=== PATIENT | male | born 1940 | race Caucasian/White ===

== ENCOUNTER 2017-01-08 22:24 | Inpatient (IN) | payer OTHER ==
[2017-01-08] MEDS ORDERED: ASPIRIN PO STA (22:47)
--- NOTE | 2017-01-08 22:47 | EKG Report ---
Test Performed on : 01/08/2017 10:39:10 PM Test Reason : Suspected Overdose Blood Pressure : / mmHG Vent. Rate : 102 BPM Atrial Rate : 102 BPM P-R Int : 188 ms QRS Dur : 164 ms QT Int : 378 ms P-R-T Axes : -23 -27 151 degrees QTc Int : 492 ms Sinus tachycardia. with premature atrial complexes. with aberrant conduction. Left bundle branch block Abnormal ECG When compared with ECG of 17-NOV-2016 10:17, aberrant conduction. is now present Unconfirmed Result
[2017-01-08 23:13] LABS: BASO% 0.1 % (0.0-0.8); HEMATOCRIT 30.5 % (42.0-52.0); HEMOGLOBIN 9.9 g/dL (14.0-18.0); IMM GRAN# 0.05 X1000 (0.0-0.04); IMM GRAN% 0.3 % (0.0-0.5); LYMPH# 1.07 X1000 (1.2-3.4); LYMPH% 5.9 % (20.5-51.1); MANUAL DIFF NEEDED? NO; MCH 28.1 PG (27-31); MCHC 32.5 g/dL (33-37); MCV 86.6 FL (81-99); MONO# 1.17 X1000 (0.11-0.59); MONO% 6.4 % (1.7-9.3); MPV 9.6 FL (7.4-10.4); NEUT% 87.3 % (42.2-75.2); PLT 460 X1000 (130-400); RBC 3.52 XMIL (4.7-6.1)
[2017-01-08 23:32] LABS: INR 1.07 (0.86-1.15); PROTIME 14.2 Seconds (12.1-15.5); PTT PL 34.8 Seconds (22.6-43.9)
[2017-01-08 23:35] LABS: AGAP 10; ALBUMIN 3.2 g/dL (3.5-5.0); ALKALINE PHOSPHATASE 120 U/L (32-122); BUN 18 mg/dL (8-22); CALCIUM 9.2 mg/dL (8.8-10.2); CHLORIDE 90 mmol/L (98-107); CK PROFILE 34 U/L (24-204); COSMO 251; GOT 31 U/L (10-34); GPT 38 U/L (10-44); MAGNESIUM 1.8 mg/dL (1.5-2.7); POTASSIUM 5.1 mmol/L (3.5-5.1); SODIUM 123 mmol/L (136-145); TCO2 22 mmol/L (25-35); TOTAL PROTEIN 6.6 g/dL (6.3-8.3)
--- NOTE | 2017-01-08 23:44 | PROVIDER DOCUMENTATION ---
HPI-General Adult - General Source: patient - History of Present Illness -Gen Adult Nature of Presenting Problems: 76 YOM PRESENTS TO ED WITH C/O PT HAS A 3 OR 4 DAY HX OF COUGH. PT STATES CHEST PAIN WITH A LOT OF BELCHING. PT STATES NECK PAIN DUE TO AMBULANCE RIDE TO ED. PT STATES HE HAS BEEN TAKING A STEROID PACK, AND IS ALMOST DONE WITH IT. PT STATES HE TAKES A NORCO 5MG IN MORNING AND 1 AT NIGHT. Location of Pain/Injury: reports: neck, chest Pain Radiation: reports: no radiation Quality of Pain: reports: aching Severity: reports: moderate Onset/Duration: reports: 3 days ago Timing: reports: still present Context/Activities at Onset: reports: light activity Modifying Factors: improves with: nothing Associated Symptoms: reports: chest pain Similar Symptoms Previously?: No Recently seen or treated by another doctor?: No - Sickle Cell Pain Related Context Is this pain typical of prior episodes of crisis?: No <Itz Rehman - Last Filed: 01/09/17 00:14> <Ravinder Garay - Last Filed: 01/09/17 00:50> - General Chief Complaint: Cough Stated Complaint: CHEST PAIN Time Seen by Provider: 01/08/17 23:05 Allergies/Adverse Reactions: Patient Allergies Allergy/AdvReac Type Severity Reaction Status Date / Time morphine Allergy Severe ANAPHYLAXIS Verified 10/16/16 15:33 Sulfa (Sulfonamide Allergy Intermediate HIVES Verified 10/16/16 15:33 Antibiotics) Home Medications: Home Medication List Medication Instructions Recorded Confirmed Last Taken Type Aspirin 81 mg PO QHS 06/07/13 10/16/16 10/16/16 History Metoprolol [Lopressor] 50 mg PO DAILY 06/07/13 10/16/16 10/16/16 History PRAVAstatin [Pravachol] 40 mg PO QHS 06/07/13 10/16/16 10/16/16 History Colchicine 0.6 mg PO ORDERED 09/06/16 10/16/16 10/16/16 History Esomeprazole [Nexium] 40 mg PO DAILY 09/06/16 10/16/16 10/16/16 History Ramipril 10 mg PO DAILY 09/06/16 10/16/16 10/16/16 History Ciprofloxacin 500 mg PO BID #24 ml 10/18/16 Unknown Rx Metronidazole [Flagyl] 500 mg PO BID #28 tablet 10/18/16 Unknown Rx Review of Systems - Adult - REVIEW OF SYSTEMS - ADULT Constitutional: denies: chills, fever Eyes: reports: no symptoms reported Ears, Nose, Mouth & Throat: reports: no symptoms reported Cardiovascular: reports: chest pain. denies: palpitations, syncope Respiratory: reports: cough, shortness of breath. denies: wheezing Gastrointestinal: denies: abdominal pain, diarrhea, nausea, vomiting Genitourinary: reports: no symptoms reported Musculoskeletal: denies: back pain, neck pain Integumentary: reports: no symptoms reported Neurological: denies: dizziness/vertigo, headache/migraines, syncope Psychiatric: reports: no symptoms reported Endocrine: reports: no symptoms reported Hematologic/Lymphatic: reports: no symptoms reported Allergic/Immunologic: reports: no symptoms reported All Other Systems: Reviewed and Negative <Itz Rehman - Last Filed: 01/09/17 00:14> Past History - Adult - PAST MEDICAL HISTORY-ADULT Review of Records: reports: Nursing Assessment Review, Medications Reviewed Cardiovascular: reports: HTN, hyperlipidemia, IA Respiratory: reports: COPD - PRIOR SURGERIES/PROCEDURES Surgical/Procedure History: reports: hernia repair, back/neck (back ) - IMMUNIZATION STATUS Childhood Immunizations: See Nurse Assessment Flu Vaccine: See Nurse Assessment - FAMILY HISTORY Family History: reviewed, not pertinent - SOCIAL HISTORY Smoking: cigarettes, greater than 1 pack/day Provider spent 3-5 mins advising pt. on dangers of tobacco.: Discussed manners to quit use, and f/u contacts for add'l counseling. Substance Use: denies Alcohol Use Frequency: never Living Situation: family <Itz Rehman - Last Filed: 01/09/17 00:14> Physical Exam-General - CONSTITUTIONAL General Appearance: alert, moderate distress - EYES Eyes: PERRL/EOMI, pink conjunctivae - HEAD, EARS, NOSE, MOUTH & THROAT HENMT: normocephalic/atraumatic, moist mucous membranes - NECK Neck: full range of motion, supple, tender lateral - RESPIRATORY Respiratory: chest non-tender, rales (RT SIDE) - CARDIOVASCULAR Cardiovascular: normal peripheral pulses, tachycardia, systolic murmur (2/6 EJECTION) - GASTROINTESTINAL (ABDOMEN) Abdominal Exam: normal bowel sounds, non tender, soft - LYMPHATIC Lymphatic: no adenopathy - MUSCULOSKELETAL Back Exam: normal inspection, no CVA tenderness, no vertebral tenderness Extremity: normal range of motion, non-tender - SKIN Integumentary: normal color, normal turgor, warm/dry - NEUROLOGIC Neurologic: grossly normal - PSYCHIATRIC Psych/Mental Status: oriented x 3 <Itz Rehman - Last Filed: 01/09/17 00:14> Progress - XRAY 1 XRAY: Bilateral XRAY Study: Chest XRAY Interpretation: RT LL INFILTRATE. CARDIOMEGALY. <Itz Rehman - Last Filed: 01/09/17 00:14> Departure <Itz Rehman - Last Filed: 01/09/17 00:14> - Departure Time of Disposition Order: 00:15 Certified Medical Emergency: Emergent <Ravinder Garay - Last Filed: 01/09/17 00:50> - Departure DIAGNOSIS: Pneumonia Qualifiers: Pneumonia type: due to unspecified organism Laterality: right Lung location: lower lobe of lung Qualified Code(s): J18.1 - Lobar pneumonia, unspecified organism CHF (congestive heart failure), NYHA class I Qualifiers: Congestive heart failure type: unspecified congestive heart failure type Qualified Code(s): I50.9 - Heart failure, unspecified Disposition: ADMITTED INPATIENT 09 Condition: Fair Attestation - Scribe Verification/Attestation Scribe:: Itz Rehman Acting as Scribe for:: Ravinder Garay Scribe documention review:: This chart was documented by a scribe and accurately reflects the service the provider performed and the decisions made by the provider. <Itz Rehman - Last Filed: 01/09/17 00:14> Physician Attestation
[2017-01-08] MEDS ORDERED: LASIX IV ONE (23:47)
[2017-01-09] MEDS ORDERED: LEVAQUIN 750 MG in NS 150 ML IV ONE (00:10)
[2017-01-09] MEDS ORDERED: NORCO-7.5 PO ONE (00:11)
[2017-01-09] MEDS ORDERED: LEVAQUIN 750 MG/D5W 150 ML ONE (00:21)
[2017-01-09] MEDS ORDERED: ZOFRAN IV PRN (00:36)
[2017-01-09] MEDS: TYLENOL PO PRN ×3 (02:30→17:02)
[2017-01-09] MEDS: LASIX IV SCH ×2 (03:26→12:11)
[2017-01-09] MEDS: DUONEB (A & A) INH SCH ×6 (04:04→23:00)
--- NOTE | 2017-01-09 08:28 | Diag Imaging Result Document ---
PROCEDURE NAME: CHEST-2 VIEWS - 01/08/2017 FRONTAL AND LATERAL CHEST, TWO VIEWS: COMPARISON: Compared to 11/17/2016. FINDINGS: The lungs are hyperexpanded. Mild increased AP diameter to the chest. Heart is borderline mildly prominent. Minimal vascular distension. No consolidation. No pleural effusions. IMPRESSION: 1. No pneumonia. 2 The patient may have emphysema and there is also mild pulmonary edema.
[2017-01-09] MEDS ORDERED: PRILOSEC PO SCH (09:00)
[2017-01-09 09:09] LABS: URINE CULTURE PL NEEDED? NO; URINE SOURCE CLEAN CATCH
[2017-01-09] MEDS: ALTACE PO SCH (09:25)
[2017-01-09] MEDS: LOPRESSOR PO SCH (09:25)
[2017-01-09 09:30] LABS: BILIRUBIN URINE NEGATIVE (NEGATIVE); BLOOD URINE NEGATIVE (NEGATIVE); CLARITY CLEAR (CLEAR); COLOR YELLOW; GLUCOSE URINE NEGATIVE (NEGATIVE); LEUKOCYTES URINE NEGATIVE (NEGATIVE); NITRITE URINE NEGATIVE (NEGATIVE); PH URINE 6.5; PROTEIN URINE TRACE mg/dL (NEGATIVE); UROBILINOGEN URINE NORMAL
[2017-01-09 09:42] LABS: URINE EPITHELIAL CELLS <10 /HPF (<10)
--- NOTE | 2017-01-09 10:58 | Diag Imaging Result Document ---
PROCEDURE NAME: ANGIOGRAM/PULMONARY ARTERIES - 01/09/2017 CT OF THE CHEST WITH INTRAVENOUS CONTRAST: FINDINGS: There are no filling defects in the pulmonary arteries. There are calcifications in the thoracic aorta which is slightly ectatic measuring 4.4 cm in the ascending aorta. No evidence of dissection is present. There are bilateral pleural effusions. There is apparent adrenal hyperplasia. Left ventricle is dilated. There are nonspecific mediastinal nodes. The AP node measures over 16 mm in greatest dimension, and there is a right paratracheal node up to 13 mm. There is emphysematous change. There is a small opacity adjacent to the diaphragm in the right lower lobe which may represent a small pneumonia. There is no evidence of acute bony disease. There are some calcifications in the coronary arteries. IMPRESSION: No evidence of pulmonary emboli. Questionable right lower lobe pneumonia. Bilateral pleural effusions. Nonspecific mediastinal nodes. COPD.
[2017-01-09 16:03] LABS: AGAP 13; ALBUMIN 2.8 g/dL (3.5-5.0); ALKALINE PHOSPHATASE 120 U/L (32-122); BUN 18 mg/dL (8-22); CALCIUM 9.3 mg/dL (8.8-10.2); CHLORIDE 88 mmol/L (98-107); COSMO 257; GOT 21 U/L (10-34); GPT 32 U/L (10-44); POTASSIUM 4.2 mmol/L (3.5-5.1); SODIUM 126 mmol/L (136-145); TCO2 25 mmol/L (25-35)
[2017-01-09] MEDS ORDERED: NORCO-5 PO ONE (17:07)
--- NOTE | 2017-01-09 17:33 | ECHO REPORT ---
ORDER DATE: 01/09/2017 MEASUREMENTS: Left ventricular end-diastolic diameter 5.7, systolic 4.6, septal thickness 1.1. Post wall thickness 1.2 left atrium 5.2, aortic root 3.7. SUMMARY: 1. Adequate quality acoustic windows. 2. Trileaflet aortic valve was sclerotic but opens adequately on 2-D images. Peak gradient across aortic valve was approximately 15 mmHg with a mean gradient of 8 mmHg. There is trace aortic regurgitation. Mitral, tricuspid and pulmonic valves are without obstruction abnormality with mild (1+) mitral regurgitation and trace tricuspid regurgitation. The aortic root is mildly enlarged. 3. Borderline left ventricular enlargement with upper normal wall thickness demonstrated. Estimated left ejection fraction is approximately 30-35% in the setting of global hypokinesis. Septal motion is paradoxical and likely related to LBBB. Left atrium is moderately enlarged. Right atrium right ventricle normal size with grossly preserved right ventricular systolic performance. 4. No pericardial effusion. 5. Appearance in the inferior vena cava suggests mildly elevated central venous pressure. CONCLUSIONS: 1. Aortic valve sclerosis without stenosis with trace aortic regurgitation. 2. Mild aortic root enlargement. 3. Mild mitral regurgitation. 4. Estimated left ejection fraction 30-35% in the setting of global hypokinesis. 5. Abnormal septal motion likely related to LBBB. 6. Moderate left atrial enlargement. [facility]
[2017-01-09] MEDS: NICODERM PATCH TD SCH (20:51)
[2017-01-09] MEDS: NORCO-5 PO SCH (20:51)
[2017-01-09] MEDS ORDERED: PRAVACHOL PO SCH (21:00)
[2017-01-09] MEDS ORDERED: ASPIRIN PO SCH (21:00)
[2017-01-09] MEDS ORDERED: ATIVAN PO SCH (21:00)
--- NOTE | 2017-01-09 21:45 | HISTORY AND PHYSICAL ---
PRIMARY CARE PHYSICIAN: Jennifer Jim M.D. CHIEF COMPLAINT: Chest pain and coughing for several days. HISTORY OF PRESENT ILLNESS: This is a 76-year-old, gentleman with a history of CAD status post stents 12 years ago, COPD and hypertension. He presented to the emergency room complaining of several days of chest discomfort as well as a nonproductive cough with increased belching. He states he was seen by his primary care physician and given a steroid Dosepak but he is not sure exactly why this was given. He does have a history of chronic pain taking [place] 5 in the morning and night. He denied any fever or chills. He did state that this pain comes on with light activity. He describes it as an aching type pain that is precordial and it goes up into his neck. It does decrease with rest. He denied PND, orthopnea, fever or chills. He was found have a white count of 18.2 with a D-dimer of 7 and a sodium of 123, as well as a proBNP of 10,186. He did have a prior proBNP in September 2016 which was 3,212. Chest x-ray revealed no pneumonia, emphysema and mild pulmonary edema. He was given Lasix 40 IV as well as Levaquin in the emergency room and admitted for further evaluation and treatment. PAST MEDICAL HISTORY: CAD status post stents 12 years ago, COPD, hypertension, hyperlipidemia, gout, chronic pain on chronic [place] b.i.d., nicotine dependence. PAST SURGICAL HISTORY: Lumbar fusion, hernia repair, and right knee surgery. SOCIAL HISTORY: He smokes a pack a day. He denies alcohol or illicit drug use. His within the past 18 months. He does have a disabled son who is in his 30s that the patient has full care of. FAMILY HISTORY: Significant for myocardial infarction and hypertension. HOME MEDICATIONS: Prednisone 5 mg daily, allopurinol 300 daily, aspirin 81 mg at bedtime, Pravachol 40 daily, Nexium 40 daily, colchicine 0.6 daily, ramipril 10 daily and Lopressor 50 mg daily. REVIEW OF SYSTEMS: A 14 point review of systems is discussed with the patient with pertinent positives being from nonproductive cough, chest pain, neck pain, chronic back pain, dyspnea on exertion. He denied chills, fevers, productive cough, PND, orthopnea, hemoptysis, black or bloody vomitus, black or bloody stools, hematuria, dysuria, frequency, urgency, diarrhea, constipation, nausea, vomiting. PHYSICAL EXAMINATION: GENERAL: This is a 76-year-old male who is sitting in the bed, anxious, in no distress. HEENT: Head is normocephalic, atraumatic. Pupils equal, round, reactive to light. EOMs are intact. Sclerae anicteric. Mucous membranes are moist. NECK: Supple with trachea midline. CARDIOVASCULAR: Regular rate and rhythm. S1 and S2 appreciated. He does have a 2/6 systolic murmur. PULMONARY: Breath sounds are clear with no increased work of breathing noted. Chest rises and falls symmetrically with respiration. GASTROINTESTINAL: Abdomen is soft, nontender, nondistended with bowel sounds in all 4 quadrants. BACK: No CVAT. No spine tenderness. MUSCULOSKELETAL: Good range of motion of joints. EXTREMITIES: No clubbing, cyanosis, or edema. Pulses are palpable. Calves are nontender x4. NEUROLOGIC: He is alert and oriented x3. DIAGNOSTICS: WBC is 18.2 with a hemoglobin of 9.9 and hematocrit of 30.5. Platelets are 460, INR is 1.07 with a D-dimer of 7. Chemistry: Sodium is 123, potassium 5.1, BUN 18, creatinine 0.7, glucose of 121. Troponin is less than 0.010 with a proBNP of 10,186. Chest x-ray revealed no pneumonia. The patient may have emphysema. Lungs are hyperexpanded with a mild increased AP diameter to the chest. Heart is borderline mildly prominent with minimal vascular distention. No consolidation with mild pulmonary edema. Blood cultures are pending. ASSESSMENT AND PLAN: 1. Chest pain. 2. Dyspnea on exertion. 3. Right lower lobe pneumonia. 4. Hyponatremia. 5. Elevated D-dimer. 6. Elevated proBNP. 7. History of coronary artery disease status post stents 12 years ago. 8. Chronic obstructive pulmonary disease. 9. Hypertension. 10. Hyperlipidemia. 11. Chronic back pain on chronic narcotic therapy. 12. Nicotine dependence. PLAN: He will be admitted to the hospital and placed on telemetry. Blood cultures were drawn. He was given Levaquin in the emergency room. We will continue this. Give DuoNebs q.4 hours with q.2 hours p.r.n. We will obtain an echocardiogram, Lasix IV b.i.d. with strict I and O. We will identify and continue his home medications as appropriate. We will obtain a CTA pulmonary and lower extremity Doppler. The patient is very concerned as he does have a disabled son at home and he is the primary secretary receptionist. The patient keeps threatening to leave as he is very concerned about his son. He has agreed to have the echocardiogram an the CT scan. We will discuss a venous Doppler with the patient later today. The patient has been told on 3 different occasions by myself as well as multiple times by the nurses the importance of taking care of himself and getting the appropriate diagnosis and care so that he will be able to go home healthy to take care of his son. Further treatments pending hospital course. Dictated by CAMERON Obrien for Eric Madera MD
[2017-01-10] MEDS ORDERED: LEVAQUIN 750 MG/D5W 150 ML IV SCH
[2017-01-10] MEDS ORDERED: LEVAQUIN 750 MG in NS 150 ML IV SCH (01:00)
[2017-01-10] MEDS: LASIX IV SCH ×2 (01:29→11:59)
[2017-01-10] MEDS: DUONEB (A & A) INH SCH ×4 (03:42→14:43)
[2017-01-10 07:00] LABS: HEMATOCRIT 32.2 % (42.0-52.0); HEMOGLOBIN 10.4 g/dL (14.0-18.0); MCH 27.6 PG (27-31); MCHC 32.3 g/dL (33-37); MCV 85.4 FL (81-99); MPV 9.9 FL (7.4-10.4); RBC 3.77 XMIL (4.7-6.1)
[2017-01-10] MEDS ORDERED: PRILOSEC PO SCH (07:00)
[2017-01-10 07:22] LABS: AGAP 11; ALBUMIN 2.9 g/dL (3.5-5.0); ALKALINE PHOSPHATASE 113 U/L (32-122); BUN 18 mg/dL (8-22); CALCIUM 9.4 mg/dL (8.8-10.2); CHLORIDE 89 mmol/L (98-107); COSMO 253; GOT 15 U/L (10-34); GPT 25 U/L (10-44); MAGNESIUM 1.7 mg/dL (1.5-2.7); POTASSIUM 3.8 mmol/L (3.5-5.1); SODIUM 125 mmol/L (136-145); TCO2 25 mmol/L (25-35); TOTAL PROTEIN 6.9 g/dL (6.3-8.3)
[2017-01-10] MEDS: LOPRESSOR PO SCH (08:48)
[2017-01-10] MEDS: ALTACE PO SCH (08:48)
[2017-01-10] MEDS: NORCO-5 PO SCH (08:48)
[2017-01-10] MEDS: NICODERM PATCH TD SCH (08:48)
--- NOTE | 2017-01-10 15:52 | CONSULTATION ---
DATE OF CONSULTATION: 01/10/2017 IMPRESSIONS: 1. Acute systolic heart failure, now improved following diuresis. 2. Angina symptoms accompanying congestive heart failure presentation. 3. Moderate to severe cardiomyopathy, likely ischemic in origin. Left ventricle ejection fraction 30 to 35%. 4. Atherosclerotic coronary disease. Patient is status post previous coronary angioplasty/stenting at [facility] approximately 13 years ago. 5. Hypertension. 6. Chronic ongoing cigarette use. RECOMMENDATIONS: Favor pursuit of cardiac catheterization, selective coronary angiography for further evaluation of severe ischemic cardiomyopathy and associated angina symptoms. Rationale for this approach was discussed with the patient. Given the clinical presentation, it would be more expedient to transfer patient to [facility] for further management. HISTORY: This 76-year-old white male with a past history of previous coronary angioplasty/stenting approximately 13 years ago, hypertension, and chronic cigarette use, was admitted with angina and acute systolic heart failure. Echocardiogram was abnormal. Cardiology consultation was requested. The patient has some tendency to downplay his symptoms. He relates a 2-week history of fatigue and some exertional shortness of breath. He has had some tendency for chest congestion and cough when lying flat. On the night of admission he developed chest congestion while lying flat. He started to have indigestion like chest discomfort which intensified. He became short of breath. EMS was summoned and brought him to the hospital by ambulance. He was found to have evidence of congestive heart failure. His symptoms improved with treatment in the emergency room. ECG demonstrated sinus rhythm with left bundle branch block which is apparently new. He was admitted to a monitored bed and diuresed. Serial cardiac enzymes revealed no evidence of recent myocardial insult. PAST MEDICAL HISTORY: 1. Atherosclerotic coronary artery disease with history of previous coronary angioplasty/stenting approximately 13 years ago at [facility]. 2. Hypertension. 3. Chronic ongoing cigarette use at a rate of 1 pack of cigarettes per day. PAST SURGICAL HISTORY: Includes unspecified back surgery and previous right knee surgery. MEDICATIONS: Prior to admission as listed. 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 He smokes 1 pack of cigarettes per day. He does not use alcohol. He is a . He is primary caregiver for his son who has significant bipolar disorder and limited cognitive ability. FAMILY HISTORY: Negative for premature coronary disease. REVIEW OF SYSTEMS: Pulmonary: Noncontributory beyond history of present illness. Gastrointestinal: Noncontributory beyond history of present illness. Constitutional: Noncontributory beyond history of present illness. Remainder of review of systems noncontributory beyond history of present illness with 14 total systems reviewed. PHYSICAL EXAMINATION: General: This is a thin, older white male, in no distress. Vital Signs: Blood pressure 135/61, heart rate 100 and regular. HEENT: Extraocular movements appear intact. Mucous membranes are moist. Neck: Supple without jugular venous distention. Carotid bruits cannot be appreciated. Chest: Clear to auscultation. Cardiac: Reveals a regular rate and rhythm without appreciable murmur or gallop. Abdomen: Soft, nontender. Bowel sounds normal. Extremities: Without edema. Neurologic: Reveals him to be alert and fully oriented. Speech is fluent. He moves all 4 extremities equal and well. Skin: Warm dry. Psych: Reveals mood to be appropriate. DIAGNOSTIC STUDIES: ECG demonstrates sinus rhythm, left bundle branch block. Echocardiography demonstrates left ventricular ejection fraction of 30 to 35% with global hypokinesis and abnormal septal wall motion probably related to underlying left bundle branch block.
[2017-01-10 15:53] VITALS: BP 110/47
[2017-01-10] MEDS: TYLENOL PO PRN (16:14)
[2017-01-10] MEDS ORDERED: LEVAQUIN PO SCH (21:00)
[2017-01-11] MEDS ORDERED: LEVAQUIN 750 MG/D5W 150 ML IV SCH ×2 (01:00)
--- NOTE | 2017-01-11 10:55 | DISCHARGE SUMMARY ---
ADMISSION DATE: 01/09/2017 DISCHARGE DATE: 01/10/2017 DIAGNOSES: 1. Acute systolic heart failure, improving with diuresis. 2. Angina symptoms. 3. Moderate to severe cardiomyopathy, likely ischemic in origin with left ventricular ejection fraction of 30-35%. 4. Arteriosclerotic coronary artery disease. The patient is status post myocardial infarction with angioplasty and stenting approximately 13 years ago. 5. Hypertension. 6. Chronic obstructive pulmonary disease. 7. Nicotine dependence with continued smoking. 8. Right lower lobe pneumonia. 9. Chronic back pain, on chronic narcotic therapy. 10. Hyponatremia, improving. DIAGNOSTICS: 1. On 01/08/2017, chest x-ray revealed no pneumonia, emphysema, and mild pulmonary edema. 2. Pulmonary arteriogram reveals right lower lobe pneumonia with no evidence of pulmonary emboli, COPD. 3. On 01/09/2017, echocardiogram reveals aortic valve sclerosis without stenosis with trace aortic regurgitation, mild mitral regurgitation, estimated ejection fraction of 30-35% in the setting of global hypokinesis. Abnormal septal motion, likely related to left bundle branch block. 4. Microbiology. Blood cultures x2 are pending. HOSPITAL COURSE: Mr. Landeros presented to the emergency room with 2 weeks of fatigue and exertional shortness of breath. Over the 48 hours prior to coming to the emergency room, he had shortness of breath at rest with 3-4 pillow orthopnea. He did have precordial chest discomfort that intensified and radiated up into his neck with activity, that did resolve with rest. He is very evasive about exactly how long this has been going on. EKG demonstrated sinus rhythm with a left bundle branch block which is new compared to prior EKGs. Serial cardiac enzymes were negative. He remained in sinus rhythm throughout the hospitalization with no chest pain, no palpitations during the hospitalization. His proBNP was elevated. He did receive IV Lasix for diuresis. He did not keep up with his I and O so we are unsure of his status. We do know that he states that he feels better. He is able to lie flat and breathe comfortably as far as respirations go. He just does not like lying on his back. He states this has improved. He was evaluated by cardiology. Due to his symptoms and his echocardiogram findings, it was recommended that he go to [facility] for further evaluation as it was felt that he would need cardiac catheterization and further evaluation of his severe ischemic cardiomyopathy associated with angina symptoms. The patient did agree to this. Of note, the patient is very hesitant to answer questions. He does downplay his symptoms as he has great concern for a son who has some disabilities with limited cognitive ability and he is the primary caregiver for his son. After explanation, he has agreed to workup. He does continue to smoke a pack of cigarettes a day. We did discuss smoking cessation. DISCHARGE MEDICATIONS: Altace 10 daily, Pravachol 40 at bedtime, Prilosec 40 daily, NicoDerm patch daily, Lopressor 50 daily, Ativan 0.5 at bedtime, Levaquin 750 at bedtime, Lasix 40 IV q.12 hours, aspirin 81 mg daily, DuoNeb q.4 hours, [place] 5 b.i.d. He does have an IV saline locked. DISCHARGE VITAL SIGNS: Blood pressure is 110/47, with a heart rate of 100, respirations are 18, temperature is 97.7 degrees oral, with room air saturations of 95%. DISPOSITION: He will be discharged to [facility] via EMS in stable condition with family members present. Dictated by CAMERON Obrien for Eric Madera MD
== END 2017-01-10 17:58 | disposition short-term general hospital (02) | DRG 291 ==
LOC: P.ED 22:24 → P.MEDSURG 01-09 00:59
PROVIDERS: ATTEND Family Medicine
DX: I11.0 Hypertensive heart disease with heart failure (principal); J18.9 Pneumonia, unspecified organism; J44.0 Chronic obstructive pulmonary disease with (acute) lower respiratory infection; E87.1 Hypo-osmolality and hyponatremia; I25.119 Atherosclerotic heart disease of native coronary artery with unspecified angina pectoris; I50.23 Acute on chronic systolic (congestive) heart failure; I44.7 Left bundle-branch block, unspecified; I25.2 Old myocardial infarction; E78.5 Hyperlipidemia, unspecified; R79.1 Abnormal coagulation profile; F17.210 Nicotine dependence, cigarettes, uncomplicated; Z71.6 Tobacco abuse counseling; I25.5 Ischemic cardiomyopathy; Z95.5 Presence of coronary angioplasty implant and graft; Z98.1 Arthrodesis status; G89.29 Other chronic pain; M10.9 Gout, unspecified; Z79.891 Long term (current) use of opiate analgesic; Z79.52 Long term (current) use of systemic steroids; Z79.899 Other long term (current) drug therapy; Z79.82 Long term (current) use of aspirin
CPT/HCPCS: 71020; 71275; 80053; 81001; 82550; 83605; 83735; 83880; 84484; 85025; 85027; 85379; 85610; 85730; 87040; 93005; 93306; 94640; 94761; 96365; 96375; J1940; Q9967